=== PATIENT | male | born 2000 | race Caucasian/White ===

== ENCOUNTER 2021-07-05 17:57 | Emergency (ER) | payer OTHER ==
[~2021-07-05] VITALS: Ht 180.3 cm; Wt 87.0 kg
[2021-07-05] MEDS ORDERED: BACT800T5 PO (18:48)
[2021-07-05] MEDS ORDERED: BACTRIM 160MG/800MG DS TAB PO ONE (18:50)
[2021-07-05 19:15] VITALS: BP 136/82
== END 2021-07-05 19:18 | disposition home or self-care (01) ==
LOC: M ED 17:57
DX: L03.114 Cellulitis of left upper limb (principal)

== ENCOUNTER 2022-04-10 19:08 | Emergency (ER) | payer OTHER ==
[~2022-04-10] VITALS: Ht 180.3 cm; Wt 87.0 kg
[~2022-04-10 19:08] MED LIST: BACT800T5 PO
[2022-04-10] MEDS ORDERED: NS 1,000 ML IV SCH (19:45)
[2022-04-10 20:40] LABS: BASO # 0.1 10^3/uL (0.0-0.2); BASO % 0.8 % (0.0-1.0); EOS # 0.2 10^3/uL (0.0-0.5); EOS % 2.6 % (0.0-3.0); HEMOGLOBIN 14.5 g/dl (13.5-17.5); LYMPH # 2.5 10^3/uL (1.5-5.0); LYMPH % 41.1 % (24.0-44.0); MEAN CORPUSCULAR HEMOGLOBIN 31.5 pg (27.0-33.0); MEAN CORPUSCULAR HGB CONC 34.5 g/dl (32.0-36.5); MEAN CORPUSCULAR VOLUME 91.1 fl (80.0-96.0); MONO # 0.7 10^3/uL (0.0-0.8); MONO % 11.3 % (2.0-8.0); NEUTROPHILS # 2.7 10^3/uL (1.5-8.5); PLATELET COUNT, AUTOMATED 255 10^3/uL (150-450); RED BLOOD COUNT 4.61 10^6/uL (4.30-6.10); WHITE BLOOD COUNT 6.1 10^3/uL (4.0-10.0)
[2022-04-10 20:51] LABS: INR 0.94; PROTHROMBIN TIME 12.7 SECONDS (12.5-14.5)
[2022-04-10 20:52] LABS: PARTIAL THROMBOPLASTIN TIME 27.5 SECONDS (24.8-34.2)
[2022-04-10 21:12] LABS: LIPASE 25 U/L (12-53)
[2022-04-10 21:14] LABS: BILIRUBIN,DIRECT 0.3 MG/DL (<0.4)
[2022-04-10 21:20] LABS: ALBUMIN 3.9 G/DL (3.2-5.2); ALKALINE PHOSPHATASE 76 U/L (46-116); ALT/SGPT 25 U/L (7.0-40); AST/SGOT 20 U/L (<34); BILIRUBIN,TOTAL 1.1 MG/DL (0.3-1.2); BLOOD UREA NITROGEN 17 MG/DL (9-23); CALCIUM LEVEL 8.7 MG/DL (8.5-10.1); CARBON DIOXIDE LEVEL 26 MMOL/L (20-31); CHLORIDE LEVEL 103 MMOL/L (98-107); CREATININE FOR GFR 1.05 MG/DL (0.70-1.30); GLOMERULAR FILTRATION RATE > 60.0 (>60); GLUCOSE, FASTING 142 MG/DL (60-100); POTASSIUM SERUM 3.5 MMOL/L (3.5-5.1); SODIUM LEVEL 138 MMOL/L (136-145); TOTAL PROTEIN 6.6 G/DL (5.7-8.2)
[2022-04-10 21:45] VITALS: BP 108/59
== END 2022-04-10 22:02 | disposition home or self-care (01) ==
LOC: M ED 19:08
DX: K92.0 Hematemesis (principal)

== ENCOUNTER 2024-09-09 14:51 | Emergency (ER) | payer OTHER ==
[~2024-09-09] VITALS: Ht 180.3 cm; Wt 94.1 kg
[2024-09-09] MEDS ORDERED: PRED20TA PO (17:05)
[2024-09-09 17:10] VITALS: BP 130/80; TEMP 97.9; O2SAT 97
[2024-09-09] MEDS: predniSONE 20 MG TAB PO ONE (17:12)
== END 2024-09-09 17:20 | disposition home or self-care (01) ==
LOC: M ED 14:51
DX: L23.7 Allergic contact dermatitis due to plants, except food (principal); F10.10 Alcohol abuse, uncomplicated; Z79.52 Long term (current) use of systemic steroids
CPT/HCPCS: 99284; J7512